=== PATIENT | male | born 1945 | race Caucasian/White ===

== ENCOUNTER 2017-05-02 10:39 | Emergency (ER) | payer MEDICARE, OTHER ==
[~2017-05-02] VITALS: Ht 170.2 cm; Wt 68.0 kg
[~2017-05-02 10:39] MED LIST: CARBAMAZEPINE200 MG PO; IBUPROFEN600 MG PO; LISINOPRIL-HCT1 EAC1 PO; MULTIVITAMINS1 EAC7 PO; SIMVASTATIN40 MG PO
--- NOTE | 2017-05-04 14:04 | EKG ---
[facility] [address] [place] [address] Signed Atrial fibrillation with rapid ventricular response Abnormal ECG When compared with ECG of 08-APR-2016 12:47, Atrial fibrillation has replaced Sinus rhythm Confirmed by SAMIME TORRES MD ([id number]) on 05/04/2017 2:04:12 PM Electronically Signed By: SAMMIE TORRES MD 05/04/17 1404 PATIENT NAME: ARIANAKAILASH PHOEBE Electrocardiogram DATE OF : 45 PHYSICIAN: SAMMIE TORRES MD REPORT #: [id number] REPORT IS CONFIDENTIAL AND NOT TO BE RELEASED WITHOUT AUTHORIZATION
== END 2017-05-02 14:45 | disposition home or self-care (01) ==
LOC: ED 10:39
PROC: 0T9B70Z Drainage of Bladder with Drainage Device, Via Natural or Artificial Opening (ICD-10-PCS; principal; 2017-05-02)
DX: I48.91 Unspecified atrial fibrillation (principal); J44.9 Chronic obstructive pulmonary disease, unspecified; Z87.891 Personal history of nicotine dependence; Z79.899 Other long term (current) drug therapy
CPT/HCPCS: 51701; 70450; 71046; 80053; 80156; 81001; 85025; 93005; 93010; 99284; J7030

== ENCOUNTER 2017-06-16 17:10 | Inpatient (IN) | payer MEDICARE ==
[~2017-06-16] VITALS: Ht 170.2 cm; Wt 63.9 kg
--- NOTE | 2017-06-17 00:15 | NUR ---
PT ADMITTED TO ROOM 120 FROM ED. PT WAS ABLE TO MOVE SELF TO THE BED FROM THE STRETCHER. NOTE THAT WHEN ASKING PT HISTORY QUESTIONS SUCH SLEEP ISSUES, PROBLEMS, OR CONCERNS WITH SLEEP HE SAID NO, HOWEVER HISTORY IS THAT HE HASN'T DONE THE SLEEP STUDY THAT HE WAS TOO DO. WHEN ASKING PT ABOUT DRUG/ALCOHOL ISSUES HE DENIED HAVING IN PAST, HOWEVER CHART NOTES THAT HE IS A "RECOVERED" ALCHOLIC.
--- NOTE | 2017-06-17 01:15 | NUR ---
PT IS RESTING WITH EYES CLOSED, RESPIRATIONS ARE EVEN AND NONLABORED. CALL LIGHT IS WITHIN REACH.
--- NOTE | 2017-06-17 02:46 | NUR ---
PT IS RESTING WITH EYES CLOSED, RESPIRATIONS EVEN AND NONLABORED. CALL LIGHT IS WITHIN REACH.
--- NOTE | 2017-06-17 04:45 | NUR ---
PT IS RESTING WITH EYES CLOSED, RESPIRATIONS EVEN AND NONLABORED. CALL LIGHT IS WITHIN REACH.
--- NOTE | 2017-06-17 06:00 | NUR ---
WOKE PT TO TAKE HIM TO THE RESTROOM AND TAKE ORTHOSTATIC VS. PT IS BACK IN BED AND DENIES NEEDS AT THIS TIME. CALL LIGHT IS WITHIN REACH.
--- NOTE | 2017-06-17 07:23 | EKG ---
[facility] [address] [place] [address] Signed Sinus rhythm with premature atrial complexes Otherwise normal ECG When compared with ECG of 02-MAY-2017 10:56, Sinus rhythm has replaced Atrial fibrillation Confirmed by PAMELA FOLEY MD ([id number]) on 06/17/2017 7:23:37 AM Electronically Signed By: PAMELA FOLEY MD 06/17/17722 PATIENT NAME: KAILASH LANE PHOEBE Electrocardiogram DATE OF : 45 PHYSICIAN: PAMELA FOLEY MD REPORT #: [id number] REPORT IS CONFIDENTIAL AND NOT TO BE RELEASED WITHOUT AUTHORIZATION
--- NOTE | 2017-06-17 08:00 | NUR ---
PATIENT RESTING QUIETLY IN BED. EYES CLOSED. RESPIRATIONS EVEN AND UNLABORED.
--- NOTE | 2017-06-17 08:30 | NUR ---
PATIENT RESTING IN IN BED WITH EYES CLOSED.
--- NOTE | 2017-06-17 10:00 | NUR ---
PATIENT HAS BEEN SLEEPING MOST OF THE MORNING. AWAKEND TO DO ASSESSMENT AND SEE IF PATIENT WANTS BREAKFAST. PATIENT NOW EATING BREAKFAST. ORIENTED TO PERSON AND PLACE, BUT NOT TIME. PATIENT'S COMMERCIAL LOAN MANAGER ARE WEAK BILAT AND BOTH LE ARE WEAK WELL. LUNGS CLEAR. BOWEL TONES ACTIVE. IV NS AT 125MLS/HR. IV PATENT.
--- NOTE | 2017-06-17 11:13 | NUR ---
PATIENT STOOD UP WITH FWW ONE PERSON ASISST TO USE URINAL. HANDS AND FACE WASHED. ORAL CARE DONE. TALKED TO PATIENT ABOUT A SHOWER THIS AFTERNOON. PATIENT AGREED. NO OTHER NEEDS AT THIS TIME.
--- NOTE | 2017-06-17 12:00 | NUR ---
PATIENT'S STATUS IS UNCHANGED. PATIENT'S IS AT BEDSIDE VISITING.
--- NOTE | 2017-06-17 13:12 | NUR ---
PATIENT IN BED WITH EYES CLOSED. CALL BUTTON IN REACH.
--- NOTE | 2017-06-17 15:55 | NUR ---
IN ROOM TO SEE PATIENT.
--- NOTE | 2017-06-17 15:59 | NUR ---
PATIENT SITTING IN BED. IV JUST SL PER MD ORDER. PHARMACIST IN TALKING WITH PATIENT ABOUT HIS MEDS.
--- NOTE | 2017-06-17 16:45 | NUR ---
THIS EXHIBIT DESIGNER ASSISTED PATIENT WITH SHOWER. PATIENT SEEMED TO ACT ANXIOUS AND WANTING TO STAND UP. TK CARE DONE. PATIENT'S SKIN RED ALL OVER. RN IN ROOM TO SEE. LINENS CHANGED. PATIENT BACK TO BED WITH TWO PERSON ASSIST WITH FWW. PATIENT TENDS TO LEAN FORWARD. PATIENT TURNED ONTO RIGHT SIDE. LEGS ELEVATED. RN IN ROOM.
[2017-06-17] MEDS ORDERED: EPITOL200 MG PO (17:12)
--- NOTE | 2017-06-17 17:31 | NUR ---
PATIENT SLEPT UNTIL ABOUT 10 AM, THEN ATE A GOOD BREAKFAST, UP VISITING WITH HIS AT NOON, AND HAD A SHOWER IN THE AFTERNOON. PATIENT WAS ON 125MLS/HR NS, BUT IS NOW SALINE LOCKED. PATIENT IS ORIENTED TO PERSON AND PLACE, BUT NOT TIME. PATIENT DOES NOT REMEMBER TAKING ANY PRESCRIPTION DRUGS, BUT RECORD SHOWS HE IS ON QUITE A FEW. NO MEDS GIVEN TODAY. 3+ PITTING EDEMA IN BILAT LE. FEET ARE VERY RED, BUT NOT PAINFUL. 2 PERSON ASSIST WITH WALKER TO THE BATHROOM. INCONT=STOOL+URINE, ATTENDS IN PLACE. NO C/O PAIN. LUNGS CLEAR.
--- NOTE | 2017-06-17 17:35 | NUR ---
PT IN BED AWAKE. SET UP FOR DINNER. FRESH ICE WATER.
--- NOTE | 2017-06-17 19:05 | NUR ---
IN ROOM FOR REPORT, PT IS RESTING WITH EYES CLOSED, RESPIRATIONS ARE EVEN AND NONLABORED. CALL LIGHT IS WITHIN REACH.
--- NOTE | 2017-06-17 21:13 | NUR ---
PT IS RESTING WITH EYES CLOSED, RESPIRATIONS EVEN AND NONLABORED. CALL LIGHT IS WITHIN REACH.
--- NOTE | 2017-06-17 21:58 | NUR ---
IN ROOM TO ASSESS PT, HE IS AWAKE IN BED AT THIS TIME AND DENIES NEEDS. ASKED IF HE WOULD LIKE TO USE THE BATHROOM AND HE SAYS HE WILL CALL IN A LITTLE BIT WHEN HE FEELS THE NEED TO GO. PT DENIES PAIN, BILAT LE'S CONTINUE TO HAVE EDEMA. CALL LIGHT IS WITHIN REACH.
--- NOTE | 2017-06-18 00:36 | NUR ---
PT IS RESTING WITH EYES CLOSED, RESPIRATIONS ARE EVEN AND NONLABORED. CALL LIGHT IS WITHIN REACH.
--- NOTE | 2017-06-18 00:38 | NUR ---
PATIENT CALLED TO USE THE BATHROOM. BAM MCMAHON AND I HELPED PATIENT USE THE URINAL, CHANGED THE SOILED ANIRUDH, GOWN AND PULL UPS. PATIENT IS BACK IN BED. CALL LIGHT IN REACH.
--- NOTE | 2017-06-18 01:11 | NUR ---
PT IS RESTING WITH EYES CLOSED, RESPIRATIONS ARE EVEN AND NONLABORED. CALL LIGHT IS WITHIN REACH.
--- NOTE | 2017-06-18 01:47 | NUR ---
PT WOKE AND REQUESTED TO USE THE URINAL, NEW ATTENDS AND GOWN ARE ON AND PT IS BACK IN BED WITH CALL LIGHT WITHIN REACH. PT HAS FRESH WATER AT BEDSIDE AND DENIES FURTHER NEEDS.
--- NOTE | 2017-06-18 03:09 | NUR ---
PT IS RESTING WITH EYES CLOSED, RESPIRATIONS ARE EVEN AND NONLABORED. CALL LIGHT IS WITHIN REACH.
--- NOTE | 2017-06-18 04:13 | NUR ---
PT IS AWAKE IN BED, STATES HE DOES NOT SLEEP WELL IN DIFFERENT PLACES. PT DENIES PAIN OR NEEDS AT THIS TIME. CALL LIGHT IS WITHIN REACH.
--- NOTE | 2017-06-18 07:54 | NUR ---
PATIENT IS A LITTLE MORE CONFUSED THIS MORNING AND DID NOT KNOW WHERE HE WAS. STILL 3+ PITTING EDEMA IN LOWER EXTREMITIES. DENIES HAVING ANY PAIN. FALLS ASLEEP EASILY. ATTENDS ARE DRY AT THIS TIME.
--- NOTE | 2017-06-18 09:55 | NUR ---
THIS APARTMENT RENTAL AGENT AND CHARGE NURSE CLEANED UP PATIENT AND CHANGED BRIEF. THIS APARTMENT RENTAL AGENT NOTICED THAT PATIENT BOTTOM AND TAILBONE AREA WAS RED AND LOOKED LIKE THE BEGINNING OF SOME BREAKDOWN. RN NOTIFIED. GOING TO BE PUTTING PATIENT ON A TURN SCHEDULE TO PREVENT FURTHER. FRESH ICE WATER. CALL LIGHT WITHIN REACH. NO OTHER NEEDS AT THIS TIME.
--- NOTE | 2017-06-18 10:00 | NUR ---
PATIENT SITTING IN BED. CALLED ON THE CALL LIGHT APPROPRIATELY AND USED THE URINAL. SPOUSE JUST ARRIVED AND IS NOW AT BEDSIDE VISITING.
--- NOTE | 2017-06-18 12:00 | NUR ---
PATIENT STILL SITTING IN BED TALKING TO HIS AND WATCHING TV. NOTHING NEW TO REPORT AT THIS TIME.
--- NOTE | 2017-06-18 13:30 | NUR ---
IN PT ROOM TO DO VS, PT SPILLED LUNCH. ASSISSTED PT TO CHAIR FROM BED WITH WALKER. RESTING COMFORTABLY IN CHAIR, CALL LIGHT WITHIN REACH, NO FURTHER NEEDS AT THIS TIME.
--- NOTE | 2017-06-18 16:20 | NUR ---
PATIENT SITTING IN THE RECLINER EATING DINNER. DENIES PAIN. LEGS ELEVATED.
--- NOTE | 2017-06-18 18:29 | NUR ---
PATIENT'S RFA IV FLUSHES WELL. NO LABS DRAWN TODAY. PATIENT HAS EATEN WELL ALL DAY. UP AND AMBULATED WITH PT IN THE HALLS WITH HIS WALKER. IN HOME MEDICAL DROPPED OFF A WALKER FOR HIM TODAY. STILL HAS 3+ PITTING EDEMA IN THE LOWER EXTREMETIES. PATIENT HAS USED THE URINAL MULTIPLE TIME, UP TO THE BATHROOM MULTIPLE TIMES, AND STILL INCONTINENT MULTIPLE TIMES. PATIENT STILL IN PULL-UPS. NO BM TODAY. PATIENT ONLY ORIENTED TO SELF THIS AM, BUT HAS REORIENTED BY THIS EVENING TO WERE HE IS, BUT STILL HAS A PROBLEM WITH THE DATE.
--- NOTE | 2017-06-18 20:00 | NUR ---
RECEIVED REPORT AT 1900, FOUND PT COMING OUT OF THE BATHROOM. I STATED TO PT THAT HE NEEDS TO CALL WHEN HE IS GETTING OUT OF BED. PT HAD NO CONCERNS AT THAT TIME. BED ALARM IS ON.
--- NOTE | 2017-06-18 21:14 | NUR ---
VITALS AND I&OS DONE AND CHARTED. FRESH WATER GIVEN. BEDSIDE TABLE AND CALL LIGHT WITHIN REACH.
--- NOTE | 2017-06-18 22:00 | NUR ---
V/S ARE WDL OVERALL. PT IS NOT ORIENTED TO YEAR, MONTH, DAY AND DATE. PT IS NOT FOLLOWING COMMANDS ABOUT USING HIS CALL DONNELLY. BED ALARM IS IN PLACE. ALL LOBES ARE DIMINISHED. THIS MAY BE DUE TO PT NOT TAKING DEEP BREATHS INSTRUCTED. EDEMA IN BOTH LOWER LEGS IS +2. PT DENIES PAIN. TOES ARE WARM TO TOUCH, PEDIS PULSES ARE +1. NO NEW CONCERNS AT THIS TIME.
--- NOTE | 2017-06-19 | NUR ---
PT IS RESTING AT THIS TIME.
--- NOTE | 2017-06-19 02:10 | NUR ---
PT IS STILL NOT ORIENTED TO YEAR, MONTH, DAY AND DATE. WHEN ASKING TO TAKE DEEPT BREATHS, PT IS STILL NOT FOLLWOING DIRECTIONS. OTHERWISE PT IS ABLE TO HOLD A NORMAL CONVERSATION. NO NEW CONCERNS AT THIS TIME. PT IS AWAKE IN BED AND UNABLE TO SLEEP.
--- NOTE | 2017-06-19 04:23 | NUR ---
HELPED PT TO THE BATHROOM WITH HIS FWW AND BACK TO BED. BEDSIDE TABLE AND CALL LIGHT WITHIN REACH. BED ALARM SET AGAIN. PT NEEDS NOTHING MORE AT THIS TIME.
--- NOTE | 2017-06-19 04:25 | NUR ---
PT IS RESTING AT THIS TIME.
--- NOTE | 2017-06-19 05:30 | NUR ---
V/S ARE WDL SO FAR. PT IS NOT ORIENTED TO YEAR, MONTH, DAY AND DATE. PT DOES NOT ALWAYS FOLLOW DIRECTIONS EITHER. EXAMPLES ARE NOT TAKING DEEP BREATHS WHEN AUSCULTATING LUNGS. PT ALSO GOT OUT OF BED AT START OF SHIFT WITHOUT CALLING AND USED THE TOILET. BED ALARM HAS BEEN IN PLACE SINCE. PT SINCE THEN HAS CALLED FOR ASSISTANCE. BILATERAL LOWER LEG EDEMA IS +2, PEDIS PULSES ARE +1. STRENGTH OVERALL IS +4. NO OTHER PROBLEMS NOTED THIS SHIFT.
--- NOTE | 2017-06-19 07:00 | NUR ---
BEDSIDE HANDOFF REPORT RECEIVED FROM PAVING FOREMAN RN. PT SLEEPING IN BED, LEFT UNDISTURBED.
--- NOTE | 2017-06-19 08:45 | NUR ---
YPT RESTING IN BED, AT BEDSIDE. PT ORIENTED TO ALL BUT DATE. PT ON ROOM AIR, LUNG SOUNDS CLEAR. PT TOLERATING REGULAR DIET, DENIES NAUSEA, BOWEL TONES ACTIVE. PT WITH EDEMA TO BLE, 2+. CMS INTACT. PT SALINE LOCKED. DISCUSSED PLAN OF CARE FOR THE DAY. PT DENIES OTHER NEEDS AT THIS TIME. BED ALARM IN PLACE.
--- NOTE | 2017-06-19 09:38 | NUR ---
MRI SCREEENING FORM COMPLETED WITH PT, FAXED TO IMAGING. PT RESTING IN BED. PT DENIES OTHER NEEDS AT THIS TIME.
--- NOTE | 2017-06-19 09:53 | NUR ---
PT WALKED TO BATHROOM, VOIDED, AND THEN RETURNED TO BED AND IS NOW SITTING UP IN BED SAFELY WITH CALL LIGHT IN REACH AND BED ALARM ON. PT AGREED TO SHOWER BUT WANTS TO WAIT TIL LATER THIS AFTERNOON.
--- NOTE | 2017-06-19 12:15 | NUR ---
LUNCH TRAY TO BEDSIDE. PT BEING ASSISTED BY NURSE AIDE TO GET TO SHOWER. PT DENIES OTHER NEEDS AT THIS TIME.
--- NOTE | 2017-06-19 12:43 | NUR ---
PT SHOWERED WITH MINIMAL ASSISTANCE, ONLY REALLY NEEDED VERBAL CUES. PT THEN RINSED MOTUH WITH MOUTH WASH AND DENTURES WERE CLEANED *PT ONLY HAS BOTTOM DENTURES NOT TOPS. PT THEN WAS DRESSED IN A NEW GOWN, DEPENDS, AND SOCKS. PT IS NOT WITH TAX SERVICES PROFESSIONAL HEADED TO GET HIS MRI DONE
--- NOTE | 2017-06-19 13:05 | NUR ---
REPORT RECEIVED FROM LINUS. ASSUMING PATIENT CARE AT THIS TIME. PATIENT RESTING IN BED, NO APPARENT DISTRESS, RR EVEN/UNLABORED. CALL LIGHT IN REACH.
--- NOTE | 2017-06-19 13:30 | NUR ---
PT BACK TO ROOM FROM MRI. PT RESTING INBED.
--- NOTE | 2017-06-19 14:10 | NUR ---
PT RESTING IN BED. PT DENIES PAIN. PT ON ROOM AIR, LUNG SOUNDS DIMINISHED POSTERIOR AND CLEAR ANTERIOR, PT UNABLE TO TAKE DEEP BREATHS WHILE SITTING UP. PT CONTINUES TO HAVE 2-3+ EDEMA ON BLE, CONCENTRATED TO ANKLES AND FEET. PT SALINE LOCKED. PT CONTINUES TO BE DISORIENTED TO DATE. NO ACUTE CHANGES. PT DENIES OTHER NEEDS AT THIS TIME. ALLOWED TO EAT LUNCH.
--- NOTE | 2017-06-19 15:05 | NUR ---
REPORT RECEIVED FROM LINUS, ASSUMING PATIENT CARE. PATIENT RESTING IN BED APPEARS TO BE SLEEPING, RR EVEN/UNLABORED. NO APPARENT DISTRESS.
--- NOTE | 2017-06-19 16:56 | NUR ---
PATIENT SITTING IN BED EATING DINNER. NO APPARENT DISTRESS NOTED. HAD NO COMPLAINTS AT THIS TIME.
--- NOTE | 2017-06-19 18:35 | NUR ---
PATIENT HAD DONE WELL TODAY, WALKED WITH PT AND OCCUPATIONAL THERAPY. HAD MRI DONE TODAY. INCONTINENT OF URINE. 2-3+ EDEMA IN BLE. 1PA WITH FWW. PATIENT IS ON ROOM AIR.
--- NOTE | 2017-06-19 19:20 | NUR ---
ROUNDED CAHRGE. PATIENT IS RESTING IN BED WATCHING TV. NO NEEDS NOTED. CALL LIGHT IN REACH.
--- NOTE | 2017-06-19 20:07 | NUR ---
PT IN BED, WATCHING TV. NO C/O PAIN, SL RA INTACT, FLUSHES EASILY, DISORIENTED TO TIME, ORIENTS EASILY, COOPERATIVEW WIHT ASSESSMENT. APPLE JUICE GIVEN ON REQUESTS. TOLERATED DIET AND FLUID WELL
--- NOTE | 2017-06-19 21:50 | NUR ---
AWAKE, WATCHING TV, USES CALL LIGHT APPROPRIATELY, NO C/O PAIN OR REQUESTS
--- NOTE | 2017-06-20 00:01 | NUR ---
RESTING, NO S/SX DISTRESS, EYES CLOSED, NO REQUESTS, TURN SELF IN BED, BED A ALARM ON. fALL PRECAUTIONS ON
--- NOTE | 2017-06-20 02:26 | NUR ---
RESTING, EYES CLOSED, NO S/SX DISTRESS
--- NOTE | 2017-06-20 04:23 | NUR ---
RESTING, EYES CLOSED, NO RESP DISTRESS. BED ALARM ON
--- NOTE | 2017-06-20 05:12 | NUR ---
CURRENTLY RESTING, EYES CLOSED, NO RESP DISTRESS. ON ROOM AIR. HAS SLEPT MOST OF THIS SHIFT. GESTS UP TO BRP USING 1 PERSON ASSIST AND FWW. CONTINUES TO BE DISORIENTED TO DATA. UNKEPT LONG NAILS "IS A HABIT, THEY ARE LIKE THAN FROM [place]" STATED. HAS BEEN INCONTINENT OF URINE, ATTENS CHANGED. COOPERATIVE. NO C/O PAIN, NO REQUESTS. TOLERATING DIET AND FLUIDS W/O PROBLEMS
--- NOTE | 2017-06-20 06:21 | NUR ---
PT INCONTINENT OF URINE AT THIS TIME. ATTENDS HAD BEEN CHANGED 30 MINUTES AGO HE WAS INCONTINENT TOO. COMPLETE BED LINEN AND GOWN CHANGED DONE. PT UP TO BRP USING ONE PERSON ASSIST AND FWW. SHOWERED, CLEAN GOWN, SOCKS AND ATTEND GIVEN. TOLERATED WELL. BACK TO BED
--- NOTE | 2017-06-20 07:30 | NUR ---
REPORT RECEIVED FROM NIMESH KUHN, PATIENT RESTING QUIETLY IN BED, HE REMAINS ON RA NO S/S OF SOB AT THIS TIME.
--- NOTE | 2017-06-20 07:45 | NUR ---
Patient appears to be sleeping with no apparent signs of discomfort. Call light in reach, bed rails up.
--- NOTE | 2017-06-20 08:00 | NUR ---
PATIENT IN BED, APPEARS TO BE SLEEPING. CALL LIGHT IN REACH.
--- NOTE | 2017-06-20 09:41 | NUR ---
PATIENT UP WORKING WITH PHYSICAL THERAPY AT THIS TIME. LINEN BEING CHANGED AT THIS TIME BY THE PHYSIOTHERAPY PRACTICE MANAGER
--- NOTE | 2017-06-20 09:46 | NUR ---
PATTIENT AMBULATING CONNOLLY WITH P/T. DRAW SHEET AND CHUCKS CHANGED. ROOM TIDIED AND GARBAGE EMPTIED. CALL LIGHT ON BED.
== END 2017-06-20 10:40 | disposition swing bed (61) | DRG 71 ==
LOC: ED 17:10 → MS 23:22
PROVIDERS: ADMIT Internal Medicine
DX: G93.41 Metabolic encephalopathy (principal); S22.43XA Multiple fractures of ribs, bilateral, initial encounter for closed fracture; L03.116 Cellulitis of left lower limb; L03.115 Cellulitis of right lower limb; W19.XXXA Unspecified fall, initial encounter; E86.0 Dehydration; J44.9 Chronic obstructive pulmonary disease, unspecified; E78.5 Hyperlipidemia, unspecified; G40.909 Epilepsy, unspecified, not intractable, without status epilepticus; R55 Syncope and collapse
CPT/HCPCS: 36415; 70450; 70553; 71045; 72131; 80048; 80053; 81001; 82140; 82607; 83735; 84100; 84439; 84443; 84484; 85025; 85651; 86592; 93005; 93010; 97110; 97116; 97162; 97165; 97530; 97535; A9579; J7030

== ENCOUNTER 2017-06-20 10:40 | Inpatient (IN) | payer MEDICARE ==
[~2017-06-20] VITALS: Ht 170.2 cm; Wt 63.9 kg
[~2017-06-20 10:40] MED LIST changes: +EPITOL200 MG PO
--- NOTE | 2017-06-20 11:27 | NUR ---
PATIENT WAS RELCINED AND GIVEN A BLANKET.
--- NOTE | 2017-06-20 11:41 | NUR ---
OT WORKING WITH THE PATIENT AT THIS TIME
--- NOTE | 2017-06-20 12:36 | NUR ---
MAXIMILIANO HANDEDOFF TO PRIMARY NURSE. PATIENT WAS EATING AND TOLERATED OT.
--- NOTE | 2017-06-20 12:54 | NUR ---
PATIENT SITTING IN CHAIR HEAD HUNG LOW- APPEARS TO BE SLEEPING, LUNCH IS ON TABLE IN FRONT OF HIM. PATIENT RESPONDED WHEN HIS NAME WAS CALLED, WAS ABLE TO TELL THIS CERTIFIED PATHOLOGY ASSISTANT THAT HE WAS STILL WORKING ON LUNCH AND FELL BACK ASLEEP MID SENTENCE. CALL LIGHT IN REACH.
--- NOTE | 2017-06-20 13:32 | NUR ---
PATIENT REMAINS UP IN HIS CHAIR, HE FELL ASLEEP DURING LUNCH. PATIENT RESPIRATIONS EVEN UNLABORED. NO S/S OF DISTRESS.
--- NOTE | 2017-06-20 15:01 | NUR ---
PATIENT ONE PERSON ASSIST FROM THE CHAIR TO THE BED, PATIENT IS NOT STEADY ON HIS FEET AND NEEDED HELP UP OUT OF THE CHAIR AND WITH AMBULATION
--- NOTE | 2017-06-20 15:24 | NUR ---
PATIENT IN BED, APPEARS TO BE SLEEPING SOUNDLY. CALL LIGHT IN REACH.
--- NOTE | 2017-06-20 15:55 | NUR ---
PATIENT CALLED FOR ASSISTANCE TO BR. USED FWW TO BR, PATIENT STOOD WITH URINAL FOR SEVERAL MINUTES BEFORE REPORTING HE WASNT ABLE TO GO. CHANGED GOWN AND ASSISTED PATIENT BACK TO CHAIR. PATIENT GOT OFF TASK A FEW TIMES AND FORGOT WHAT WE WERE DOING, STATED " IFYOU THINK THIS IS DIRTY, YOU SHOULD SEE THE INSIDE OF OUR HOUSE, I DON'T THINK A WALKER IS GOING TO WORK THERE." CALL LIGHT IN REACH. NO OTHER NEEDS ATT
--- NOTE | 2017-06-20 16:49 | NUR ---
PATIENT MOVED UP IN BED AND DINNER SET UP FOR HIM AT THIS TIME.
--- NOTE | 2017-06-20 18:23 | NUR ---
PATIENT CHANGED TO A SWING BED PATIENT TODAY. HIS END GOAL IS TO WALK WITH A CANE 300FT. PATIENT HAS BEEN UP WITH PHYSICAL THERAPY AND OCCUPATIOAL THEAPY TODAY. HE SLEPT MOST OF THE DAY.
--- NOTE | 2017-06-20 19:33 | NUR ---
UP TO BRP WITH ASSIST AND FWW. HAD ABM. PRIOR TO THAT PT WAS INCONTINET OF URINE AND BM, COOP WITH ASSESSMENT.NO C/O PAIN OR REQUESTS, FALL PRECAUTIONS IN PLACE, BED ALARM ON
--- NOTE | 2017-06-20 21:55 | NUR ---
Resting, eyes closed, no distress
--- NOTE | 2017-06-21 00:12 | NUR ---
RESTING, EYES CLOSED, NO RESP DISTRESS, NO S/SX PAIN AT THIS TIME, IN BED, BED ALARM ON
--- NOTE | 2017-06-21 04:38 | NUR ---
Pt has slept most of this shift, no c/o pain or resp distress. Has been incontinent of urine, complete bed linen and gown changed, skin care and attends changed. Pt also got up to brp with one assist and fww, slow gait. Edema of right leg more than left leg present. Legs elevated. Pt on Swing bed status. Pt cooperative with assessments and procedure. Tolerating fluids w/o problems
--- NOTE | 2017-06-21 07:15 | NUR ---
BEDSIDE HANDOFF REPORT RECEIVED FROM DIPLOMATIC INTERPRETER/TRANSLATOR RN.PT SLEEPING, LEFT UNDISTURBED.
--- NOTE | 2017-06-21 08:19 | NUR ---
PT SITTING IN CHAIR, EATING BREAKFAST. PT ON ROOM AIR, LUNG SOUNDS DIMINISHED WITH WHEEZE THROUGHOUT. PT DENIES NAUSEA, TOLERATING REGULAR DIET, BOWEL TONES ACTIVE. PT WITH EDEMA TO BLE, 1-2+. PT INCONTINENT OF URINE, FREQENT TK ASSESSMENT AND CARE. PT DISORIENTED TO DATE. PT WITHOUT IV ACCESS. DISCUSSED PLAN OF CARE FOR THE DAY. PT DENIES OTHER NEEDS AT THIS TIME.
--- NOTE | 2017-06-21 08:43 | NUR ---
ANSWERED PATIENT'S CALL LIGHT HAD TO USE THE RESTROOM. NOW IS SITTING UP IN HIS CHAIR EATING HIS BREAKFAST. CHANGED BED LINENS.
--- NOTE | 2017-06-21 09:30 | NUR ---
FINANCE ASSISTANT ASSISTING PT TO SHOWER. IN ROOM. PT DENIES NEEDS AT THIS TIME.
--- NOTE | 2017-06-21 12:32 | NUR ---
PATIENT NEEDED TO BE CUED ON HOW TO WASH HIS BODY AND ALSO WASH HIS HAIR. TOOK SHOWER THIS MORNING AFTER HE ATE HIS BREAKFAST AND ALSO VITALS.
--- NOTE | 2017-06-21 13:15 | NUR ---
PT SITTING IN CHAIR, CALLED, TANSFERED TO ROOM. PT DENIES OTHER NEEDS ATTHIS TIME.
--- NOTE | 2017-06-21 17:35 | NUR ---
PT RSTING IN BED, EATING DINNER. PT GIVEN SCHEDULED LIPITOR. PT ASSISTED WITH DINNER TRAY. PT DENIES OTHER NEEDS AT THIS TIME.
--- NOTE | 2017-06-21 18:19 | NUR ---
PT HAD UNEVENTUFL DAY. PT WORKED WITH PT/OT, AMBULATED IN CONNOLLY. PT ON ROOM AIR. PT DENIES PAIN. PT CONTINUES TO BE DISORIENTED TO DATE ONLY. PT UP WITH SBA AND FWW. TOLERATING REGULAR DIET. PT INCONTINENT OF URINE AND STOOL, FREQUENT PERICARE. PT SHOWERED TODAY. BED ALARM.
--- NOTE | 2017-06-21 18:32 | NUR ---
PATIENT IS SLEEPING.
--- NOTE | 2017-06-21 19:00 | NUR ---
STANDBY ASSIST TO BR TO USE URINAL USING FWW AND BACK TO BED. PATIENT WAS UNABLE TO URINATE. CALL LIGHT IN REACH. PATIENT REPORTS HE APPRECIATES EVERYTHING THE NURSING STAFF DOES FOR HIM, AND THAT HE TRUSTS US. NO OTHER NEEDS.
--- NOTE | 2017-06-21 20:01 | NUR ---
COOP WITH ASSESSMENT. TEMP 99, LUNGS WITH INSP/EXP WHEEZING BILAT AND DIM AT BASES, IS GIVEN. PT ABLE TO ONLY GO UP TO 500ML AFTER 7 TRIES, CONTINUE TO REINFORCE CDB AND IS USAGE. SLEEPY, AWAKENS EASILY, NO C/O PAIN. ALERT TO SELF AND PLACE
--- NOTE | 2017-06-21 20:11 | NUR ---
ROUNDED CHARGE. PATIENT IS RESTING IN BED WATCHING TV. PATIENT DENIES ANY NEEDS. CALL LIGHT IN REACH.
--- NOTE | 2017-06-21 20:43 | NUR ---
INCONTINENT OF URINE, BED LINEN AND GOWN CHANGED. ATENDS REPLACED. SKIN CARE DONE. UP TO BRP AFTERWARDS AND PT URINATED 125CC YELLOW URINE USING URINAL, HAD A LARGE SOFT BM, SKIN CARE DONE AGAIN, BACK TO BED. REQUIRES 1 PERSON ASSIST AND FWW, TOLERATED WELL. NO C/O PAIN OR SOB
--- NOTE | 2017-06-22 00:32 | NUR ---
UP TO BRP, VOIDED, USING URINAL. WAS ALSO INCONTINET OF URINE. ATTENDS CHANGED. BACK TO BED. USING 1SBA AND FWW. NO C/O PAIN OR SOB, TOLERATES WELL
--- NOTE | 2017-06-22 02:23 | NUR ---
RESTING, EYES CLOSED, NO RESP DISTRESS, NO COUGH. TURNS SELF IN BED.
--- NOTE | 2017-06-22 04:15 | NUR ---
Incontinent of urine, attens changed, skin care done. Cooperative, follows instructions well, pleasant. Legs elevated,
--- NOTE | 2017-06-22 05:30 | NUR ---
incontinent of urine, attends changed. Used call light appropriately, up to berp with 1sba and fww, voided small amounts yellow urine, and had a soft bm. for a total of 2 soft bms this shift. Back to bed, tolerated well. Bed alarm on. Cooperative with procedures, easily redirectable, alert to place and name.
--- NOTE | 2017-06-22 07:05 | NUR ---
BEDSIDE HANDOFF REPORT RECEIVED FROM DISPATCHER CHIEF COAL SLURRY RN. PT SLEEPING, LEFT UNDISTURBED.
--- NOTE | 2017-06-22 08:15 | NUR ---
PT RESTING IN BED. PT ASSISTED TO BATHROOM AND THEN TO CHAIR, INCONTINENT OF URINE, ABLE TO VOID AN ADDITIONAL 150 ML. PT ON ROOM AIR, LUNG SOUNDS DIMINISHED WITH COARSE CRACKLES TO LEFT LOWER LOBE, DENIES SOB, ENCOURAGED USE OF I/S ABLE TO REACH 750. PT DENIES NAUSEA, BOWEL TONES ACTIVE, TOLERATIGN REGULAR DIET, REQUIRES SOME PROMPTING TO EAT. PT CONTINUES TO HAVE EDEMA TO BLE, CONCENTRATED AROUND ANKLES, 1-2+, CMS INTACT, PULSES PALPABLE. PT WITHOUT IV ACCESS. PT DISORIENTED TO DATE, DAY, YEAR AND REASON FOR ADMISSION. DISCUSSED PLAN OF CARE FOR THE DAY. PT DENIES OTHER NEEDS. CHAIR ALARM ON.
--- NOTE | 2017-06-22 11:11 | NUR ---
PHYSICAL THERAPIST WALKED PATIENT AROUND MED SURG. AND NOW HE IS BACK IN HIS ROOM SITTING UP IN HIS CHAIR.
--- NOTE | 2017-06-22 12:00 | NUR ---
PT SITTING IN CHAIR. PT DROWSY, DOES NOT FOLLOW COMMANDS, WILL OPEN EYES BRIEFLY AND FALL BACK ALSEEP. VSS. O2 SATS 98% ON ROOM AIR. PT LUNG SOUNDS DIMINISHED WITH CRACKLES TO LEFT LOWER LOBE.
--- NOTE | 2017-06-22 12:45 | NUR ---
PT SITTING IN CHAIR, EATING LUNCH. ALERT AND ORIENTED TO ALL BUT DATE. PT DENIES NEEDS AT THIS TIME. DISCUSSED WITH MD PT DROWSINESS AND LUNG SOUNDS. MD TO EVALUATE PT.
--- NOTE | 2017-06-22 13:00 | NUR ---
MD TO BEDSIDE TO EVALUAT EPT. PLAN OT ADD PRN NEBS AND CONTINUE TO MONITOR.
--- NOTE | 2017-06-22 14:53 | NUR ---
PATEINT GOT UP USED RESTRROM AND WENT BACK TO BED
--- NOTE | 2017-06-22 16:00 | NUR ---
PT RSTIGN IN BED, SLEEPING. LEFT UNDISTURBED.
--- NOTE | 2017-06-22 17:15 | NUR ---
PT GIVEN SCHEDULED LIPITOR. PT SITTING IN BED, EATING DINNER. PT WITH GOOD APPETITE. PT DENIES OTHER NEEDS AT THIS TIME.
--- NOTE | 2017-06-22 18:17 | NUR ---
PT CONTINUES TO BE DISORIENT TO DATE ONLY, DROWSY MIDMORNING. EVALUATED PT, ADDED PRN NEBS. PT ON ROOM AIR, LUNG SOUNDS DIM WITHCRACKLES TO LEFT LOWER LOBE, I/S AT BEDSIDE, REQUIRES PROMPTING. PT UP WITH 1PA WITH FWW, PT/OT. PT TOLERATING REGUALR DIET, GOOD APPETITE, ENJOYS STRAWBERRY ENSURE. PT CONTINUES TO HAVE EDEMA TO BLE, CONCENTRATED AROUND ANKLES. PT INCONTINENT OF URINE, QS.
--- NOTE | 2017-06-22 18:42 | NUR ---
PATIENT IS SLEEPING.
--- NOTE | 2017-06-22 20:09 | NUR ---
Pt drowsy, took several cues to wake up, answered appropriately to name and place only. Incontinent of urine. Pt required several verbal cues to change attends, gown and bed linen. This is a change to pt cognitive status from this am. Able to move all extremities with general weakness w/o changes from previous dates. Bed alarm on. Pt was able to swallow liquids in small amounts. Lungs with exp wheezing and dim at bases bilat, on room air Bed alarm on.
--- NOTE | 2017-06-22 23:15 | NUR ---
RESTING, HOB ELEVATED, NO RESP DISTRESS, TURNS SELF IN BED, BED ALARM ON
--- NOTE | 2017-06-23 00:59 | NUR ---
incontinent of urine. gown and attends changed, skin care done. Up to brp too, voided, clear yellow urine, small amounts, back to bed. Requires 1sba and fww, tolerated well. Alert to self and town at this time. Continues to require several cues to get back to bed
--- NOTE | 2017-06-23 02:42 | NUR ---
Resting, eyes closed, turns self in bed, no requests
--- NOTE | 2017-06-23 04:20 | NUR ---
PT IS MORE AWAKE AND ALERT AT THIS TIME. WALKED TO BRP 3X WITH 1PA AND FWW. TOLERATED WELL. USES URINAL PLUS HAS BEEN INCONTINENT OF URINE, ATTENDS INPLACE.RIGHT LEG CONTINUES TO BE 2+ EDEMA MORE THAN LEFT. HAS SLEPT MOST OF THIS SHIFT
--- NOTE | 2017-06-23 06:14 | NUR ---
Resting, eyes closed. no c/o pain or resp distress. Rails upx3, bed alarm on.
--- NOTE | 2017-06-23 07:30 | NUR ---
PATIENT RESTING IN BED WITH EYES CLOSED.
--- NOTE | 2017-06-23 08:39 | NUR ---
PT DIFFICULT TO AROUSE, BUT IS NOW AWAKE, EYES OPEN, ENGAGING IN CONVERSATION. DISORIENTED TO DATE, PLACE, PERSON. ORIENTED TO SELF. TOOK SEVERAL 5 CC ORAL SYRINGES OF STRAWBERRY ENSURE, AND IS NOW EATING PANCAKES WITH ASSISTANCE FROM MARTHA GIPSON. PT ANSWERING QUESTIONS REGARDING HIS PREFERENCES, WELL HIS FAVORITE PLACE TO EAT OUT AT.
--- NOTE | 2017-06-23 09:02 | NUR ---
PATIENT UP TO CHAIR WITH FWW ONE PERSON ASSIST. PATIENT EATING BREAKFAST. CALL BUTTON IN REACH. CHAIR ALARM ON. NO OTHER NEEDS AT THIS TIME.
--- NOTE | 2017-06-23 09:35 | NUR ---
PT SITTING UP IN RECLINER. PERSONAL SUPPLIES AND CALL LIGHT IN REACH. PT DENIES PAIN. CHAIR ALARM ON.
--- NOTE | 2017-06-23 10:16 | NUR ---
PATIENT UP TO BATHROOM WITH ONE PERSON ASIST WITH FWW. LINENS CHANGED GOWN CHANGED. PT WORKING WITH PATIENT AT THIS TIME.
--- NOTE | 2017-06-23 11:44 | NUR ---
PT SITTING UP IN RECLINER. THIS RN ASSISTED PT IN ORDERING LUNCH, AND PT IS NOW EATING LUNCH. PT HAS CALL LIGHT AND PERSONAL SUPPLIES IN REACH. DENIES NEEDS. DENIES PAIN.
--- NOTE | 2017-06-23 11:50 | NUR ---
PATIENT SITTING UP IN CHAIR WITH LUNCH. CALL BUTTON IN REACH.
--- NOTE | 2017-06-23 13:44 | NUR ---
PT SITTING UP IN RECLINER. MARTHA, ENZO AT SIDE. PT DENIES PAIN, DENIES NEEDS. PERSONAL SUPPLIES AND CALL LIGHT IN REACH.
--- NOTE | 2017-06-23 14:05 | NUR ---
IN PT ROOM ASSISTING PT WITH ADLS, PT AMUBLATED WITH STANDBY ASSIST AND FWW TO BATHROOM AND TO BED. pT RESTING WATCHING TELEVSION, CALL LIGTH WITHIN REACH, NO FURTHER REQUESTS AT THIS TIME.
--- NOTE | 2017-06-23 14:05 | NUR ---
CAME IN TO CHECK ON PT. MARTHA GIRALDO WAS WORKING ON SOME SPECIAL HYGIENE NEEDS. VISITED WITH PT SHE ATTENDED TO HIM. EXTENDED A BLESSING, WILL FOLLOW NEEDED
--- NOTE | 2017-06-23 15:54 | NUR ---
PT SLEEPING SOUNDLY IN BED, NO S/S DISTRESS OR DISCOMFORT. PERSONAL SUPPLIES AND CALL LIGHT IN REACH.
--- NOTE | 2017-06-23 16:40 | NUR ---
ASSISTED PT TO URINATE AT BEDSIDE AND AMBULATE TO THE RECLINER FOR DINNER. pT IN CHAIR, WITH CHAIR ALARM ON, CALL LIGHT WITHIN REACH, NO FURTHER REQUESTS AT THIS TIME.
--- NOTE | 2017-06-23 16:46 | NUR ---
PT UP WITH 1 PERSON ASSIST WITH FWW. INCONTINENT OF URINE AT TIMES. ALSO USES URINAL. PT ORIENTED TO SELF, . ORIENTED TO WHO THE PRESIDENT OF US IS, BUT DISORIENTED TO PLACE, DATE. TOLERATED PO MEDICATION WELL, AND TOLERATED PO FOOD AND FLUIDS WELL, WAS ABLE TO FEED HIMSELF. REQUIRED REORIENTATION AT TIMES. PT HAS EXPIRATORY WHEEZES NOTED AT TIMES, WHICH CLEARED WITH COUGH. BILATERAL LOWER EXTREMITY EDEMA NOTED. PT DROWSY OFF AND ON THIS SHIFT.
--- NOTE | 2017-06-23 17:20 | NUR ---
PATIENT SITTING STRAIGHT UP IN CHAIR EATING DINNER. CALL BUTTON IN REACH.
--- NOTE | 2017-06-23 19:15 | NUR ---
IN ROOM FOR REPORT, PT IS RESTING WITH EYES CLOSED AND RESPRIATIONS ARE EVEN AND NONLABORED. CALL LIGHT IS WITHIN REACH.
--- NOTE | 2017-06-23 21:04 | NUR ---
CHANGED BED LINEN, GOWN AND ATTENDS SOAKED WITH URINE. PATIENT IS IN BED, BED ALARM ON.
--- NOTE | 2017-06-23 21:30 | NUR ---
IN ROOM TO ASSESS PT AND GIVE EVENING MEDICATION. PT IS ALERT AND TOLD THIS RN ABOUT HIS FAMILY. HIS SISTER CALLED AND HE SAID HE WOULD LIKE TO TALK TO HER, DIALED THE NUMBER FOR HIM AND HANDED HIM THE PHONE. PT DENIES FURTHER NEEDS AT THIS TIME.
--- NOTE | 2017-06-24 00:21 | NUR ---
PT IS RESTING WITH EYES CLOSED, RESPIRATION ARE EVEN AND NONLABORED. CALL LIGHT IS WITHIN REACH.
--- NOTE | 2017-06-24 02:22 | NUR ---
PT IS RESTING WITH EYES CLOSED, RESPIRATIONS ARE EVEN AND NONLABORED. CALL LIGHT IS WITHIN REACH.
--- NOTE | 2017-06-24 02:37 | NUR ---
HELPED PT TO RESTROOM, PT ALREADY WENT IN ATTENDS AND COULD NOT GO ANY MORE. PT IS BACK IN BED WITH BEDALARM ON AND CALL LIGHT WITHIN REACH.
--- NOTE | 2017-06-24 05:01 | NUR ---
PT IS RESTING WITH EYES CLOSED, RESPIRATIONS ARE EVEN AND NONLABORED. CALL LIGHT IS WITHIN REACH.
--- NOTE | 2017-06-24 05:02 | NUR ---
PT SLEPT MOST OF THE NIGHT, HE WAS UP A COUPLE OF TIMES TO USE THE URINAL BUT HAD ALREADY GONE IN HIS ATTENDS. HE IS A 1PA WITH FWW. LUNGS ARE DIMINISHED AND HE HAS AN INTERMITTENT COUGH. BILATERAL LE EDEMA IS NOTED. DR TORRES'S NOTES STATED HE SHOULD GET HOME HEALTH SERVICES UPON [place].
--- NOTE | 2017-06-24 07:51 | NUR ---
BEDSIDE REPORT RECEIVED FROM JOSE KUHN. WHITE BOARD UPDATED. PATIENT AWAKE FOR REPORT. LYING IN BED. REPOSITIONED PATIENT FOR COMFORT. EDEMA NEARLY GONE IN LOWER EXTREMITIES. BED ALARM ON.
--- NOTE | 2017-06-24 08:00 | NUR ---
PATIENT UP TO CHAIR WITH ONE PERSON ASSIST WITH FWW. PATIENT SET UP TO EAT BREAKFAST WITH CALL BUTTON IN REACH. LINENS CHANGED. NO OTHER NEEDS AT THIS TIME.
--- NOTE | 2017-06-24 08:15 | NUR ---
ASSISTED PT FROM BED TO CHAIR WITH USE OF FWW SO HE COULD EAT BREAKFAST. PT UP IN CHAIR EATING BREAKFAST, CHAIR ALARM IN PLACE, CALL LIGHT WITHIN REACH.
--- NOTE | 2017-06-24 08:24 | NUR ---
PT SITTING UP IN RECLINER EATING BREAKFAST AND WATCHING TELEVISION. HAD TROUBLE REMEMBERING DATE. COULD NOT RECALL YEAR, BUT COULD RECALL CURRENT SOUND ENGINEER AUDIO CONTROL.
--- NOTE | 2017-06-24 08:43 | NUR ---
WORKING WITH PHYSICAL THERAPY AT THIS TIME.
--- NOTE | 2017-06-24 09:35 | NUR ---
PT WALKED HALLS WITH PHYSICAL THERAPY. [address] SQL DEVELOPER ASSISTING SHOWERING PATIENT NOW. WILL CALL WHEN FINISHED WITH SHOWER.
--- NOTE | 2017-06-24 10:05 | NUR ---
ASSISSTED PT WITH SHOWER AND GETTING DRESSED FOR PENDING DISCHARGE. PT REQUIRED MINIMAL ASSIST. PT SITTING IN RECLINER, CHAIR ALARM IN PLACE, CALL LIGHT WITHIN REACH. NO FURTHER REQUESTS AT THIS TIME.
--- NOTE | 2017-06-24 10:09 | NUR ---
CALLED , DANNY, AT HOME PHONE NUMBER WITH NO ANSWER. GAVE STICKY NOTE WITH 'S NUMBER ON IT TO THE PATIENT. WILL ATTEMPT TO CALL AGAIN LATER. IF NO ANSWER BY NOON WE WILL DISCUSS SENDING PATIENT HOME IN [place].
--- NOTE | 2017-06-24 14:17 | NUR ---
PT SITTING IN CHAIR,DRESSED AND READY FOR DC. PT IS ALERT, JOVIAL AND SEEMED TO ENJOY ALL THE ATTENTION HE RECEIVED HERE. SHOOK HIS HAND AND EXTENDED A BLESSING. PT WAITING FOR HIS .
--- NOTE | 2017-06-25 10:18 | NUR ---
FAXED CHART NOTES TO [facility] FOR PT AND OT FOR THIS PT. SENT ORDER, H AND P, DC SUMMARY, PT AND OT EVAL AND NOTES. RECIEVED A FAX CONFIRMATION ON THIS. TALKED WITH CARMELO IN .
== END 2017-06-24 10:35 | disposition home health service (06) | DRG 556 ==
LOC: MS 10:40
PROVIDERS: ADMIT Internal Medicine
DX: M62.81 Muscle weakness (generalized) (principal); Z91.81 History of falling; E86.0 Dehydration; J44.9 Chronic obstructive pulmonary disease, unspecified; G40.909 Epilepsy, unspecified, not intractable, without status epilepticus; E78.5 Hyperlipidemia, unspecified; F03.90 Unspecified dementia, unspecified severity, without behavioral disturbance, psychotic disturbance, mood disturbance, and anxiety; D48.7 Neoplasm of uncertain behavior of other specified sites; Z79.899 Other long term (current) drug therapy
CPT/HCPCS: 94640; 97110; 97116; 97162; 97166; 97535

== ENCOUNTER 2018-02-27 07:50 | Day surgery (SDC) | payer MEDICARE, OTHER ==
[~2018-02-27] VITALS: Ht 170.2 cm; Wt 57.6 kg
[~2018-02-27 07:50] MED LIST changes: +CALCIUM CARBON500 MG PO; +CENTRUM SILVER1 EAC2 PO; +D3 DOTS2000 UNIT PO; +DOXYCYCLINE HY100 MG PO; +MAPAP500 M1 PO; +METOPROLOL SUCC25 MG PO; +WARFARIN SODIUM3 MG PO
[2018-02-27] MEDS ORDERED: VITAMIN K10 MG/ML IM (08:41)
[2018-02-27] MEDS ORDERED: CIPRO500 MG PO (08:42)
[2018-02-27] MEDS ORDERED: CEFDINIR300 MG PO (09:17)
--- NOTE | 2018-02-27 09:28 | NUR ---
PT DEPENDS CHANGED. PALOMO CATHETER EMPTIED OF 550 JUDY COLORED URINE.
--- NOTE | 2018-02-27 09:33 | NUR ---
[id number]: [facility] TAK[facility] MEDICATIONS AND PO INTAKE, SPOKE WITH FELIPE.
--- NOTE | 2018-02-27 11:03 | NUR ---
02/27/18 1103 Iliana Aguayo 1057 PATIENT ARRIVES TO PACU SLEEPING, UNRESPONSIVE TO VERBAL STIMULI. RESP EVEN AND UNLABORED, MASK AT 6 LITERS.
--- NOTE | 2018-02-27 11:55 | NUR ---
PT ARRIVES TO DS TREATMENT ROOM FROM PACU ASLEEP, LEFT LATERAL. PT RESP EVEN AND UNLABORED. NO NAUSEA OR PAIN NOTED. PT NON AROUSAL TO VERBAL STIMULATION. PT GRIMACES WITH PAINFUL STIMULATION. CAREGIVER AT BEDSIDE. WATER PROVIDED.
--- NOTE | 2018-02-27 12:55 | NUR ---
PT RESTING IN BED WITH EYES CLOSED. PT OPENS EYES TO VERBAL STIMULATION BUT QUICKLY CLOSES EYES. PT DOES NOT RESPOND VERBALLY TO ANY STIMULI. PT CONT TO PERIODICALLY GRIMACE. CAREGIVER REMAINS AT BEDSIDE AND STATES THAT PATIENT SAID, "WHAT?" TO HER AND THEN CLOSED EYES AGAIN. WOUND VAC MAKING LOUD "BURP" NOISES INTERMITTENTLY.
--- NOTE | 2018-02-27 14:00 | NUR ---
PT MENTATION BACK TO BASE LINE. PT LAUGHS AND OPENS EYES WITH VERBAL STIMULATION. PT SAYS A FEW SCRAMBLED SENTENCES. PT SHAKES HEAD NO WHEN ASKED ABOUT PAIN. PT TAKES SIPS OF WATER WITH NO PROBLEMS. CAREGIVER REMAINS AT BEDSIDE.
--- NOTE | 2018-02-27 14:03 | OR ---
[facility] [address], [place] [address] Signed DATE OF OPERATION: 02/27/2018 SURGEON: Luisana Chowdhury MD PREOPERATIVE DIAGNOSIS: Necrotic tissue and large sacral decubitus. POSTOPERATIVE DIAGNOSIS: Necrotic tissue and large sacral decubitus. PROCEDURES: 1. Exam under anesthesia. 2. Sharp debridement of sacral decubitus necrotic tissue including skin, subcutaneous tissue, and fat. 3. Application of wound VAC device. ANESTHESIA: Intravenous sedation, Yamila Jones CRNA. INDICATION: This 72-year-old white man is a patient of Dr. Brendon Dyer, who now resides at [facility]. He underwent debridement of a necrotic sacral decubitus by oh on January 28, 2018, after being admitted with severe metabolic problems and sepsis. A wound VAC device was applied. At [facility], he has had changes of the wound VAC device as needed. Recently, had foul-smelling necrotic tissue noted in the upper aspect of the wound. Wet-to-dry dressings were then applied and he is now to undergo debridement of the necrotic tissue with re-application of the wound VAC device. FINDINGS: The necrotic tissue was quite foul smelling as might be expected surrounding this area of necrosis, however, was excellent granulation tissue. Complete debridement of tissue down to viable tissue was accomplished and the wound VAC device reapplied. DESCRIPTION OF PROCEDURE: The patient was brought to the operating room, placed in the lateral position, left side down. The dressing was removed and foul malodorous stench was noted. Necrotic tissue was noted in the superior aspect of the wound where sacrum photographs were taken. Intravenous sedation was administered by the egg setter. Sharp debridement was undertaken with a #20 blade and a #15 blade down to bleeding viable tissue. Complete debridement of necrotic tissue was noted. The wound VAC device was cut to appropriate Electronically Signed By: LUISANA CHOWDHURY MD 02/27/18 1403 PATIENT NAME: KAILASH LANE OPERATIVE REPORT DATE OF : 45 REPORT #: [id number] PHYSICIAN: LUISANA CHOWDHURY MD PCP: BRENDON DYER MD REPORT IS CONFIDENTIAL AND NOT TO BE RELEASED WITHOUT AUTHORIZATION [address] [address] Signed size and applied. Good suction was noted on the device. The patient was then transferred to the [facility] and taken to recovery room in good condition having suffered no complication. Blood loss was less than 25 mL. Sponge, needle, and instrument counts reported as correct x3. MD ERLINDA Luu/PARRISL /[id number] cc: Francia Rodriguez Physician MD Markel Arciniega DO Jonathan Hitzman, MD Copies: BRADEN FRANCO MD,BRENDON WIGGINS MD ~ Electronically Signed By: LUISANA CHOWDHURY MD 02/27/18 [address] PATIENT NAME: KAILASH LANE OPERATIVE REPORT DATE OF : 45 REPORT #: [id number] PHYSICIAN: LUISANA CHOWDHURY MD PCP: BRENDON DYER MD REPORT IS CONFIDENTIAL AND NOT TO BE RELEASED WITHOUT AUTHORIZATION
--- NOTE | 2018-02-27 14:05 | NUR ---
150 MLS OF CONCENTRATED YELLOW URINE EMPTIED FROM PALOMO CATHETER.
--- NOTE | 2018-02-27 14:45 | NUR ---
PT DRESSED WITH HELP OF TWO DS RN'S AND [facility] CAREGIVER. SLING PLACED BEHIND PT AND JACKSON LIFT USED TO TRANSFER PT FROM STRETCHER TO PERSONAL WHEELCHAIR. RED DRAINAGE NOTED IN WOUND VAC TUBING, BUT NO DRAINAGE IN CANISTER. CAREGIVER CALLS [facility] FOR RIDE HOME, PT AND CAREGIVER DC FROM DS TREATMENT ROOM BACK TO [facility].
--- NOTE | 2018-02-27 15:51 | EKG ---
[facility] [address] [facility] [place] [address] Signed Sinus tachycardia with premature supraventricular complexes and with occasional premature ventricular complexes Otherwise normal ECG When compared with ECG of 27-JAN-2018 11:35, Sinus rhythm has replaced Atrial fibrillation ST no longer elevated in Inferior leads ST elevation has replaced ST depression in Anterior leads Nonspecific T wave abnormality no longer evident in Inferior leads Confirmed by DARIEL STONE DO ([id number]) on 02/27/2018 3:51:28 PM Electronically Signed By: DARIEL STONE DO 02/27/18 1551 PATIENT NAME: KAILASH LANE Electrocardiogram DATE OF : 45 PHYSICIAN: DARIEL STONE DO REPORT #: [id number] REPORT IS CONFIDENTIAL AND NOT TO BE RELEASED WITHOUT AUTHORIZATION
== END 2018-02-27 14:30 ==
LOC: DS 07:50 → OPS 07:50 → DS 10:00 → OPS 10:00
PROVIDERS: Surgery
PROC: 0JB70ZZ Excision of Back Subcutaneous Tissue and Fascia, Open Approach (ICD-10-PCS; principal; 2018-02-27 10:00)
DX: I96 Gangrene, not elsewhere classified (principal); L02.212 Cutaneous abscess of back [any part, except buttock and flank]; Z79.01 Long term (current) use of anticoagulants; Z79.899 Other long term (current) drug therapy
CPT/HCPCS: 01120; 88304; 93005; 93010; J0690; J2250; J2704; J3010; J7120

== ENCOUNTER 2018-03-21 08:49 | Inpatient (IN) | payer MEDICARE, OTHER ==
[~2018-03-21] VITALS: Ht 170.2 cm; Wt 53.0 kg
[~2018-03-21 08:49] MED LIST changes: +CEFDINIR300 MG PO; +CIPRO500 MG PO; +VITAMIN K10 MG/ML IM
[2018-03-21] MEDS ORDERED: ACIDOPHILUS LA1 EAC1 PO (09:16)
[2018-03-21] MEDS ORDERED: AUGMENTIN 875-1 EACH PO (09:17)
[2018-03-21] MEDS ORDERED: CENTRUM SILVER1 EAC3 PO (09:18)
[2018-03-21] MEDS ORDERED: ACETAMINOPHEN500 M1 PO (13:36)
[2018-03-21] MEDS ORDERED: COUMADIN6 MG PO (13:42)
--- NOTE | 2018-03-25 19:21 | CONS ---
[facility] [place] [facility] [address] [place], [place] [address] Signed DATE OF CONSULTATION: 03/24/2018 CONSULTING PHYSICIAN: Luisana Chowdhury MD PROBLEM: Persistent issues of sacral decubitus. HISTORY OF PRESENT ILLNESS: A very infirm and demented 72-year-old white man, has resided at [facility] for the past few weeks. He was admitted several days ago on March 21, 2018 (today is March 24), having presented to the emergency room with what appeared to be urosepsis. He has an indwelling Regalado catheter and urinalysis was markedly abnormal. He was noted to have a white count of 12.6, hematocrit of 38.9, and platelets of 458,000 with a lactic acid level of 4.3. Notably, I had seen him in consultation in February for a necrotic tissue and a sacral decubitus. He underwent advanced operative debridement on February 27, 2018, with application of a wound VAC device. The patient had been living in [facility] with his completely unable to take care of him at that time. Upon discharge, he had gone to [facility] where they were doing wound VAC dressing changes. He was noted to have some necrotic tissue and therefore wound VAC was discontinued and general wound care undertaken. I saw him again as an outpatient (retirement visit) and over a week ago, he underwent additional debridement with application of wound VAC down to viable tissue. In the past week, he was noted to have more necrotic tissue on the right side, but in the meantime has been admitted for urosepsis as described. I am consulted at this time for re-evaluation of the sacral wound. The patient is noncommunicative. He has had a difficult course recently with tachycardia and findings suggestive of ongoing septic process. His labs improved with white count of 7.9 down from 12.6 at admission. He remains anticoagulated with Coumadin and is on Lovenox as well. MEDICATIONS: His medications at hospitalization include: 1. Coumadin. 2. Diltiazem, orally administered. 3. Tylenol. 4. Metoprolol. Electronically Signed By: LUISANA CHOWDHURY MD 03/25/18 1921 PATIENT NAME: KAILASH LANE CONSULTATION DATE OF : 45 REPORT #: [id number] PHYSICIAN: LUISANA CHOWDHURY MD PCP: BRENDON SORIANO MD REPORT IS CONFIDENTIAL AND NOT TO BE RELEASED WITHOUT AUTHORIZATION [facility] [place] [facility] [address] [place], [place] [address] Signed 5. Meropenem. 6. Pantoprazole. 7. Lovenox. ALLERGIES: He has a long allergy list including sulfa medications. PHYSICAL EXAMINATION: The patient remains essentially noncommunicative. In the left lateral decubitus position, his sacral wound is evaluated. There was good granulation in the right and central portions in the dependent left side, and superiorly, there is obviously necrotic material. There is a foul smell. The patient has had persistent incontinence of stool, though there is no stool in the wound at this moment. Wound care has been initiated with a single ply of sterile gauze, moistened and packed into the nonviable tissue on the right side. ASSESSMENT: The patient has persisting recurring wound failure from a sacral decubitus. Much of the wound is granulating, but certain portion is certainly not and worsened of course by his fecal incontinence. He has been re-evaluated and now is considered a bu-joo-wjxbatuotas status and rightly so given his overall situation. This is in concert with his of course. His urosepsis is problematic and the sacral wound, though potential infectious source unlikely to be the source of his overall decline recently. Additional debridement certainly could be undertaken. On our last operative debridement, this was done with IV sedation and local anesthetic alone. Debridement was previously taken back to a very healthy tissue and a wound VAC applied that may be required now. I am told by his nurse as he has had a bit of a progressive decline today. His prognosis overall is very poor. Aggressive debridement will be undertaken as appropriate. For now, the local wound care may provide some degree of reasonable debridement as well. Luisana Chowdhury MD /PARRISL /[id number] Electronically Signed By: LUISANA CHOWDHURY MD 03/25/18 [address] PATIENT NAME: KAILASH LANE CONSULTATION DATE OF : 45 REPORT #: [id number] PHYSICIAN: LUISANA CHOWDHURY MD PCP: BRENDON SORIANO MD REPORT IS CONFIDENTIAL AND NOT TO BE RELEASED WITHOUT AUTHORIZATION [address] [address] Signed cc: Pamela Pillai MD Copies: PAMELA PILLAI MD ~ Electronically Signed By: LUISANA CHOWDHURY MD 03/25/18 1921 PATIENT NAME: KAILASH LANE CONSULTATION DATE OF : 45 REPORT #: [id number] PHYSICIAN: LUISANA CHOWDHURY MD PCP: BRENDON SORIANO MD REPORT IS CONFIDENTIAL AND NOT TO BE RELEASED WITHOUT AUTHORIZATION
--- NOTE | 2018-03-29 14:13 | OR ---
[facility] [address] [place], [place] [address] Signed DATE OF OPERATION: 03/27/2018 SURGEON: Luisana Chowdhury MD PREOPERATIVE DIAGNOSES: 1. Progressive recurrent necrotic tissue, left lateral sacral decubitus. 2. History of debridement of sacral decubitus. POSTOPERATIVE DIAGNOSES: 1. Progressive recurrent necrotic tissue, left lateral sacral decubitus. 2. History of debridement of sacral decubitus. PROCEDURES: 1. Exam under anesthesia. 2. Debridement of necrotic skin, fat and soft tissue of sacral decubitus, left lateral superior aspect. 3. Sacral bone biopsy and sacral bone biopsy for culture. 4. Application of wound VAC device. 5. Application of wound VAC to sacrum. ANESTHESIA: Local with monitored anesthesia care. Emil Abel CRNA. INDICATION: This 72-year-old white man was recently admitted to the hospital with urosepsis on March 21, 2018. I have seen him in the past initially for a very advanced sacral decubitus when he was living in his home with his in [facility]. The patient is very demented and previously had electrolyte disturbances that impaired his interactions. Following debridement and application of wound VAC, he was discharged and has been at [facility]. He had progressive granulation related to the wound VAC device, but then had on the left lateral aspect, some tissue necrosis that recurred and resulted in cessation of his wound VAC device. He was taken for debridement once again in late February with re-application of the wound VAC device. More recently, he was noted to have foul smelling wound and was noted to have necrotic tissue, for which [facility], but given his recent admission for urosepsis on March 21, 2018, consultation was undertaken once again for more definitive wound management. The urosepsis seems to be coming under control. However, a portion of the sacral decubitus is foul smelling and debridement is clearly necessary. Electronically Signed By: LUISANA CHOWDHURY MD 03/29/18 [address] PATIENT NAME: KAILASH LANE OPERATIVE REPORT DATE OF : 45 REPORT #: [id number] PHYSICIAN: LUISANA CHOWDHURY MD PCP: BRENDON DYER MD REPORT IS CONFIDENTIAL AND NOT TO BE RELEASED WITHOUT AUTHORIZATION [facility] [address] [place], [place] [address] Signed I have communicated with his daughter and the need for debridement. The patient himself is not capable of providing reasonable consent. The risks of bleeding, infection, failure to cure the problem, and so forth were reviewed with family members. They understand and wished to proceed. Of note, the patient is now a do not resuscitate and do not intubate status. FINDINGS: Good granulation was noted in the right lateral and superior and inferior aspects of the sacral decubitus, on the left lateral superior aspect was necrotic material. The necrotic material included surrounding subcutaneous tissue including fat and some skin. Debridement included skin, subcutaneous tissue, and investing fascia of the posterior sacrum. A biopsy of the sacrum was undertaken from above culture as well as pathology. By conclusion, it remains good viable tissue throughout. A wound VAC was applied as well. DESCRIPTION OF PROCEDURE: The patient was brought to the operating room, placed in the lateral position right side up. He was given intravenous sedation. He is known to have an elevated INR related to Coumadin therapy, but this is not a contraindication to local resection. The sacrum and posterior pelvis area were prepared with a Betadine solution and draped sterilely. Photographs were taken. Sharp debridement with scissors primarily was undertaken in the left lateral and left superior aspect of the sacral decubitus. Nonviable skin was excised in continuity with soft tissue of fat and posterior sacral fascial edges as appropriate. Given his persisting problem, the bone biopsy was deemed advisable for both culture and pathologic evaluation. This was accomplished with a rongeur. Irrigation was undertaken and hemostasis was assured with electrocautery. A wound VAC was cut to the appropriate configuration and the application allowed for a good seal. The patient was then returned to the recovery room, having suffered no known complications. BLOOD LOSS: Less than 10 mL. Luisana Chowdhury MD Electronically Signed By: LUISANA CHOWDHURY MD 03/29/18 [address] PATIENT NAME: KAILASH LANE OPERATIVE REPORT DATE OF : 45 REPORT #: [id number] PHYSICIAN: LUISANA CHOWDHURY MD PCP: BRENDON DYER MD REPORT IS CONFIDENTIAL AND NOT TO BE RELEASED WITHOUT AUTHORIZATION [facility] [address] [place] [id number] Signed /MODL /[id number] cc: MD Niko Abad, MD Brendon Dyer, MD Zenobia Pillai MD Copies: SAMMIE TORRES MD,BRENDON GRIGGS MD, CYNTHIA MD ~ Electronically Signed By: LUISANA CHOWDHURY MD 03/29/18 [address] PATIENT NAME: KAILASH LANE OPERATIVE REPORT DATE OF : 45 REPORT #: [id number] PHYSICIAN: LUISANA CHOWDHURY MD PCP: BRENDON DYER MD REPORT IS CONFIDENTIAL AND NOT TO BE RELEASED WITHOUT AUTHORIZATION
[2018-04-01] MEDS ORDERED: DOXYCYCLINE HY100 MG PO (10:45)
[2018-04-01] MEDS ORDERED: TAMSULOSIN HCL0.4 MG PO (10:45)
[2018-04-01] MEDS ORDERED: METOPROLOL SUCC25 MG PO (10:46)
[2018-04-01] MEDS ORDERED: DILTIAZEM ER180 MG PO (10:47)
[2018-04-01] MEDS ORDERED: LINEZOLID600 MG PO (10:49)
[2018-04-01] MEDS ORDERED: WARFARIN SODIUM3 MG PO (10:59)
[2018-04-01] MEDS ORDERED: COUMADIN6 MG PO (10:59)
== END 2018-04-01 14:25 | disposition home or self-care (01) | DRG 853 ==
LOC: ED 08:49 → MS 11:01 → CCU 11:01 → MS 03-22 11:00
PROVIDERS: Surgery; ADMIT Internal Medicine
PROC: 0JB90ZZ Excision of Buttock Subcutaneous Tissue and Fascia, Open Approach (ICD-10-PCS; principal; 2018-03-27 11:00)
DX: A41.81 Sepsis due to Enterococcus (principal); L89.153 Pressure ulcer of sacral region, stage 3; N39.0 Urinary tract infection, site not specified; Q85.8 Other phakomatoses, not elsewhere classified; B96.20 Unspecified Escherichia coli [E. coli] as the cause of diseases classified elsewhere; Z16.12 Extended spectrum beta lactamase (ESBL) resistance; I48.0 Paroxysmal atrial fibrillation; Z79.01 Long term (current) use of anticoagulants; R53.81 Other malaise; F03.90 Unspecified dementia, unspecified severity, without behavioral disturbance, psychotic disturbance, mood disturbance, and anxiety; G40.909 Epilepsy, unspecified, not intractable, without status epilepticus; Z66 Do not resuscitate; Z86.718 Personal history of other venous thrombosis and embolism; F17.210 Nicotine dependence, cigarettes, uncomplicated; E78.5 Hyperlipidemia, unspecified
CPT/HCPCS: 00400; 36415; 51702; 71045; 80048; 80053; 81001; 83605; 83735; 84100; 84134; 85025; 85610; 87040; 87070; 87075; 87077; 87088; 87186; 87205; 88304; 88307; 88311; 93306; 94762; 96365; 96367; 97161; 99285-25; C9113; J0295; J1650; J1885; J1940; J2185; J2543; J2704; J3010; J3370; J3480; J7030; J7060; J7120

== ENCOUNTER 2018-04-14 15:31 | Observation (INO) | payer MEDICARE, OTHER ==
[~2018-04-14] VITALS: Ht 170.2 cm; Wt 51.4 kg
[~2018-04-14 15:31] MED LIST changes: +ACETAMINOPHEN500 M1 PO; +ACIDOPHILUS LA1 EAC1 PO; +AUGMENTIN 875-1 EACH PO; +CENTRUM SILVER1 EAC3 PO; +COUMADIN6 MG PO; +DILTIAZEM ER180 MG PO; +LINEZOLID600 MG PO; +TAMSULOSIN HCL0.4 MG PO
--- OUTSIDE RECORDS SUMMARY | 2018-04-14 15:34 | XMS ---
PreManage Notification: KAILASH LANE Security Manager Behavioral Events No recent Security Events currently on file CRITERIA MET - [facility] - Has Care Guidelines - [facility] - 2 Visits in 30 Days CARE PROVIDERS [facility] 01/20/2018-Current PHONE: Unknown Brendon Dyer [facility] Current [place] PHONE: Unknown [place] has no Care Guidelines for this patient. Care History Social 01/20/2018 [facility]CT [facility] [phone] WITH ANY CONCERNS FOR PATIENT SAFETY.\T\nbsp; E.D. VISIT COUNT (12 MO.) 6 RANJIT Amor TOTAL 6 NOTE: Visits indicate total known visits. ED/UCC VISIT TRACKING (12 MO.) 04/14/2018 15:32 [facility] OR TYPE: Emergency COMPLAINT: - FEVER 03/21/2018 08:49 [facility] TYPE: Emergency COMPLAINT: - POSS SEPSIS 01/27/2018 10:27 [facility] OR TYPE: Emergency COMPLAINT: - WEAKNESS,DIARRHEA 01/20/2018 08:55 [facility] OR TYPE: Emergency COMPLAINT: - WEAKNESS DIAGNOSES: - Chronic obstructive pulmonary disease, unspecified - Unspecified dementia without behavioral disturbance - Adult failure to thrive - Personal history of nicotine dependence - Weakness 06/16/2017 17:11 [facility] OR TYPE: Emergency COMPLAINT: - LEG ISSUES 05/02/2017 10:42 [facility] OR TYPE: Emergency COMPLAINT: - WEAKNESS DIAGNOSES: - Other intermediate project manager (current) drug therapy - Weakness - Chronic obstructive pulmonary disease, unspecified - Unspecified atrial fibrillation - Personal history of nicotine dependence INPATIENT VISIT TRACKING (12 MO.) 03/21/2018 11:01 [facility] OR TYPE: Medical Surgical COMPLAINT: - SEPSIS DIAGNOSES: - Sepsis due to Enterococcus - Other malaise - Urinary tract infection, site not specified - Unspecified Escherichia coli [E. coli] as the cause of diseases classified elsewhere - Personal history of other venous thrombosis and embolism - senior care (current) use of anticoagulants - Other malaise - Epilepsy, unspecified, not intractable, without status epilepticus - Paroxysmal atrial fibrillation - Nicotine dependence, cigarettes, uncomplicated - Paroxysmal atrial fibrillation - Sepsis due to Enterococcus - Hyperlipidemia, unspecified - Sepsis, unspecified organism - Do not resuscitate - Urinary tract infection, site not specified - supervisor intermediates (current) use of anticoagulants - Pressure ulcer of sacral region, stage 3 - Do not resuscitate - Pressure ulcer of sacral region, stage 3 - Unspecified dementia without behavioral disturbance - Extended spectrum beta lactamase (ESBL) resistance - Personal history of other venous thrombosis and embolism - Unspecified dementia without behavioral disturbance - Unspecified Escherichia coli [E. coli] as the cause of diseases classified elsewhere - Hyperlipidemia, unspecified - Epilepsy, unspecified, not intractable, without status epilepticus - Other phakomatoses, not elsewhere classified - Other phakomatoses, not elsewhere classified - Nicotine dependence, cigarettes, uncomplicated - Extended spectrum beta lactamase (ESBL) resistance 01/27/2018 14:17 [facility] OR TYPE: Medical Surgical COMPLAINT: - A FIB, RVR DIAGNOSES: - Sepsis, unspecified organism - Hyperlipidemia, unspecified - Adult failure to thrive - Unspecified dementia without behavioral disturbance - Nicotine dependence, unspecified, uncomplicated - Epilepsy, unspecified, not intractable, without status epilepticus - Epilepsy, unspecified, not intractable, without status epilepticus - Chronic obstructive pulmonary disease, unspecified - Dehydration - Severe sepsis without septic shock - Other disorders of phosphorus metabolism - Acute embolism and thrombosis of right popliteal vein - Nicotine dependence, unspecified, uncomplicated - Severe sepsis without septic shock - Other disorders of phosphorus metabolism - Acute embolism and thrombosis of unspecified deep veins of left distal lower extremity - Hypomagnesemia - Paroxysmal atrial fibrillation - Hypomagnesemia - Acute embolism and thrombosis of right popliteal vein - Adult failure to thrive - Anemia, unspecified - 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 - Local infection of the skin and subcutaneous tissue, unspecified - Metabolic encephalopathy - Acute kidney failure, unspecified - Paroxysmal atrial fibrillation - Dehydration - Pressure ulcer of sacral region, stage 3 - Hyperlipidemia, unspecified - Other nail disorders - Other intermediate project manager (current) drug therapy - Unspecified dementia without behavioral disturbance - Pressure ulcer of sacral region, stage 3 - Local infection of the skin and subcutaneous tissue, unspecified - Muscle weakness (generalized) - Vitamin D deficiency, unspecified - Metabolic encephalopathy - Hyperosmolality and hypernatremia - Chronic obstructive pulmonary disease, unspecified - Other correction (current) drug therapy - Vitamin D deficiency, unspecified - Acute embolism and thrombosis of unspecified deep veins of left distal lower extremity - 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 - Acute kidney failure, unspecified - Hyperosmolality and hypernatremia - Other nail disorders - Anemia, unspecified - Muscle weakness (generalized) 06/16/2017 23:22 [facility] OR TYPE: Medical Surgical COMPLAINT: - SYNCOPE DIAGNOSES: - Hyperlipidemia, unspecified - Dehydration - Multiple fractures of ribs, bilateral, initial encounter for closed fracture - Cellulitis of right lower limb - Syncope and collapse - Epilepsy, unspecified, not intractable, without status epilepticus - Metabolic encephalopathy - Chronic obstructive pulmonary disease, unspecified - Unspecified fall, initial encounter - Cellulitis of left lower limb [email or web address]
--- NOTE | 2018-04-14 20:20 | NUR ---
PT ARRIVES AT THIS TIME VIA STRETCHER TO ROOM 127 HOUSE CONVENIENCE COMFORT CARE. TRANSFERRED VIA DRAWSHEET AND POSITIONED ONTO LEFT SIDE. PT IS OBTUNDED, NONVERBAL. RESPIRATIONS TACHYPNIC, 5L O2 VIA NC IN PLACE. TACHYCARDIC, DIGOXIN ADMINISTERED PER ORDER. BOWEL TONES ACTIVE, ATTENDS IN PLACE. PT ARRIVES WITH PALOMO IN PLACE, URINE IS TEA COLORED WITH BLOOD NOTED. PT HAS WOUND VAC TO SACRUM/COCCYX IT IS NOT CURRENTLY RUNNING. FEBRILE, AXILLARY TEMP 103.8, TYLENOL SUPPOSITORY ADMINISTERED. ORAL CARE PROVIDED AND 5MG SL MORPHINE ADMINISTERED FOR DISCOMFORT, 2/10 FLACC. WILL CONTINUE TO MONITOR.
--- NOTE | 2018-04-14 23:02 | NUR ---
REPOSITIONED PT ONTO RIGHT SIDE WITH PILLOW SUPPORT. REMAINS FEBRILE, 103.1 AXILLARY TEMP. PT APPEARS COMFORTABLE, REMAINS TACHYPNIC RR:40.
--- NOTE | 2018-04-15 02:17 | NUR ---
PT RESTING COMFORTABLY AT THIS TIME. REMAINS TACHYCARDIC, HR:124 AND TACHYPNIC RR:60. WILL ALLOW FOR REST AND CONTINUE TO MONITOR.
--- NOTE | 2018-04-15 04:54 | NUR ---
PT REPOSITIONED ONTO LEFT SIDE WITH PILLOW SUPPORT BETWEEN KNEES. PRN TYLENOL SUPPOSITORY ADMINISTERED FOR AXILLARY TEMP OF 102.2. PT REMAINS OBTUNDED. NO URINE OUTPUT IN PALOMO CATHETER. LUNGS REMAIN CLEAR AND DIM, OXYGEN TITRATED TO 2L FOR COMFORT. HR:129, RR:45. PT APPEARS COMFORTABLE, WILL CONTINUE TO MONITOR.
--- NOTE | 2018-04-15 07:55 | NUR ---
THIS RN TAKING OVER PT CARE THIS AM. AT THIS TIME, INTRODUCTION TO PT COMPLETED AND 10 MG SL MORPHINE GIVEN TO MAINTAIN COMFORT. PT IS NONVERBAL, CONTRACTED LIMBS, TACHYPNEIC AND TACHYCARDIC. I REPOSITIONED PT TO HIS RIGHT SIDE (HE WAS LAYING ON HIS LEFT). ALL EXTREMITIES ELEVATED ON PILLOWS. PALOMO IN PLACE WITH NO URINE OUTPUT. WOUND VAC IN PLACE TO GRAVITY WITH NO VISIBLE DRAINAGE IN THE TUBING. BRIEF CHECKED AND IS DRY WITH NO BOWEL MOVEMENT. THERAPEUTIC COMMUNICATION AND EMOTIONAL SUPPORT PROVIDED TO PT. HE APPEARS COMFORTABLE WITH NO NONVERBAL SIGNS OF DISCOMFORT OR PAIN. NO GRIMACING OR MOANIN WHEN PT WAS TURNED TO HIS SIDE. NO FAMILY OR VISITORS AT BEDSIDE AT THIS TIME. ENVIRONMENT IS CLEAN AND CALM. CALL LIGHT IS WITHIN REACH. WILL CONTINUE TO CLOSELY MONITOR AND KEEP COMFORTABLE WITH PAIN MEDICATION NEEDED.
--- NOTE | 2018-04-15 08:55 | NUR ---
PT STILL RESTING IN BED WITHOUT ANY SIGNS OF DISCOMFORT OR PAIN. HE STILL REMAINS TACHYCARDIC AND TACHYPNEIC AT THIS TIME. EYES ARE OPEN BUT SEEM TO BE DRIFTING LEFT/RIGHT AND BACK TO CENTER. CALL LIGHT WITHIN REACH. WILL CONTINUE TO MONITOR.
--- NOTE | 2018-04-15 09:07 | NUR ---
Medications reconciled from recent inpatient admission
--- NOTE | 2018-04-15 09:30 | NUR ---
THIS RN NOTICED AT THIS TIME ON TELE MONITOR, PT'S HEART RATE HAD LOWERED TO THE 80'S AFTER BEING IN THE 120'S ALL MORNING. WITHIN MINUTES, HIS HEART RATE LOWERED AND CONTINUED TO DROP. I ENTERED THE ROOM I NOTICED'S PT'S TELE MONITOR WAS FLATLINE. DR. TORRES NOTIFIED FOR PT'S ASSESSMENT.
--- NOTE | 2018-04-15 09:40 | NUR ---
TIME OF 2879
--- NOTE | 2018-04-15 09:45 | NUR ---
MANAGER LIGHTING HIUE HAS BEEN NOTIFIED OF PT'S PASSING. MATERIALS COORDINATOR MARGARITA WORKING ON APPROPRIATE PAPERWORK.
--- NOTE | 2018-04-15 12:22 | NUR ---
PT'S BODY TAKEN AT THIS TIME; THIS RN REMOVED PIV PRIOR TO THIS.
--- NOTE | 2018-04-15 14:16 | NUR ---
I WAS NOTIFIED BY BAM LEE THAT PT HAD PASSED. I ARRIVED IN , NO FAMILY WAS PRESENT, BAM TINEOV HAD BEGUN MED NOTIFICATIONS AND I NOTIFIED FAMILY. CONTACTED DAUGHTER FAN. SHE WILL CONTACT HER MOTHER DANNY WHO FAN SAID WITH A NOTE OF FRUSTRATION IS "VERY HARD OF HEARING". FAN MADE A DECISION TO USE [facility], AND WHEN HER MOTHER ARRIVED SHE CONFIRMED IT. PT'S STAYED FOR A FEW MOMENTS ALONE WITH PT, TOLD ME SHE DID NOT KNOW WHAT TO DO NEXT. I GAVE HER GUIDANCE, SHE ACKNOWLEDGED AND WAS READY TO LEAVE. I TOOK HER TO FRONT, GOT A CARE RIDE FOR HER HOME. CONTACTED [facility] AND ASSISTED IN TRANSFER TO VEHICLE. I HAD PLACED PASSAGE QUILT ON PT EARLIER. GOD BLESS THEM
--- NOTE | 2018-04-16 00:32 | EKG ---
[facility] [address] [facility] [place] [address] Signed Atrial fibrillation with rapid ventricular rate Posterior infarct , age undetermined Abnormal ECG When compared with ECG of 27-FEB-2018 09:05, Current undetermined rhythm precludes rhythm comparison, needs review QRS duration has decreased ST now depressed in Anterior leads Confirmed by SAMMIE TORRES MD ([id number]) on 04/16/2018 12:32:37 AM Electronically Signed By: SAMMIE TORRES MD 04/16/18 0032 PATIENT NAME: KAILASH LANE Electrocardiogram DATE OF : 45 PHYSICIAN: SAMMIE TORRES MD REPORT #: [id number] REPORT IS CONFIDENTIAL AND NOT TO BE RELEASED WITHOUT AUTHORIZATION
--- NOTE | 2018-04-16 13:42 | NUR ---
I RECEIVED A PHONE CALL FROM PT'S DAUGHTER PAMELA JOY IN [facility]. HER FAMILY APPARENTLY DIDNOT NOTIFY HER THAT HER FATHER HAD . I WAS UNDER THE IMPRESSION THAT HER SISTER FAN WOULD NOTIFY HER, APPARENTLY I WAS WRONG. I APOLOGIZED TO HER FOR NOT CONTACTING HER, EXTENDED CONDOLENCES. SHE WAS INTERESTED IN DIRECTION FOR ARRANGEMENTS. PT WAS TAKEN TO [facility]-PER FAMILY DECISION. I SENT THE THE CONTACT INFO, SHE THANKED ME. SHE ALSO MENTIONED THAT SHE HAD CALLED LAST NIGHT ANDF SPOKE WITH AN RN ON CCU AND GOT THE PARTICULIARS MUCH SHE FELT SHE NEEEDED. I EXTENDED A BLESSING AND LET HER KNOW WE ARE HERE. GOD BLESS HER
== END 2018-04-15 12:22 ==
LOC: ED 15:31 → CCU 15:33
PROVIDERS: ADMIT Internal Medicine
DX: A41.9 Sepsis, unspecified organism (principal); R65.21 Severe sepsis with septic shock; Z51.5 Encounter for palliative care; I48.2 Chronic atrial fibrillation; N40.0 Benign prostatic hyperplasia without lower urinary tract symptoms; G40.909 Epilepsy, unspecified, not intractable, without status epilepticus; F03.90 Unspecified dementia, unspecified severity, without behavioral disturbance, psychotic disturbance, mood disturbance, and anxiety; L89.153 Pressure ulcer of sacral region, stage 3; J44.9 Chronic obstructive pulmonary disease, unspecified; E55.9 Vitamin D deficiency, unspecified; E78.5 Hyperlipidemia, unspecified; E87.0 Hyperosmolality and hypernatremia; R62.7 Adult failure to thrive; M62.81 Muscle weakness (generalized); M62.50 Muscle wasting and atrophy, not elsewhere classified, unspecified site; Z66 Do not resuscitate; Z79.01 Long term (current) use of anticoagulants; Z79.899 Other long term (current) drug therapy; Z88.1 Allergy status to other antibiotic agents; Z88.2 Allergy status to sulfonamides; Z86.718 Personal history of other venous thrombosis and embolism
CPT/HCPCS: 71045; 74177; 80053; 81001; 83605; 85025; 87040; 87077; 87088; 87186; 93005; 93010; 96365; 96366; 96375; 99285-25; G0378; J0692; J1160; J2405; J7060; Q9967